=== PATIENT | male | born 1965 | race African-American/Black ===

== ENCOUNTER 2022-12-20 05:15 | Emergency (ER) | payer MEDICAID ==
[~2022-12-20] VITALS: Ht 165.1 cm; Wt 78.0 kg
[2022-12-20 05:18] VITALS: O2SAT 100
[2022-12-20 06:39] LABS: BASOPHILS % 0.4 % (0.0-2.0); EOSINOPHILS % 1.4 % (0.0-5.0); HEMATOCRIT. 37.8 % (42.0-52.0); HEMOGLOBIN. 12.2 g/dL (14.0-18.0); MEAN CORPUSCULAR HEMOGLOBIN 27.8 pg (28.0-32.0); MEAN CORPUSCULAR HGB CONC 32.3 g/dL (31.0-37.0); MEAN CORPUSCULAR VOLUME 86.2 fL (80.0-94.0); MEAN PLATELET VOLUME 7.9 fl (7.4-10.4); MONOCYTES % 10.1 % (2.0-8.0); NEUTROPHILS % 56.1 % (40.0-76.0); PLATELET 368 x1000/uL (130-400); RED BLOOD CELL COUNT 4.38 mill/uL (4.7-6.1); RED CELL DISTRIBUTION WIDTH 16.9 % (11.6-14.6)
[2022-12-20 06:49] LABS: CHLORIDE 105 mEq/L (98-107); INDEX HEMOLYSI 1 (1-3); INDEX ICTERIC 1 (1-4); INDEX LIPEMIC 1 (1-3); SODIUM 137 mEq/L (136-145)
[2022-12-20 06:59] LABS: ALANINE AMINOTRANSFERASE 56 IU/L (13-61); ASPARTATE AMINOTRANSFERASE 39 IU/L (15-37); BILIRUBIN TOTAL 0.2 mg/dL (0.1-1.0); CALCIUM 8.3 mg/dL (8.5-10.1); CARBON DIOXIDE 27 mEq/L (21-32); CREATININE 0.8 mg/dL (0.6-1.3); GLUCOSE 92 mg/dL (70-105); NT PRO B-TYPE NATRIURETIC PEP 425 pg/mL (5-125); PROTEIN TOTAL 7.3 g/dL (6.0-8.3); TROPONIN I HIGH SENSITIVITY 14 ng/L (<78); UREA NITROGEN BLOOD 18 mg/dL (7-21)
[2022-12-20 09:14] VITALS: BP 135/92; PULSE 87; RESP 19; TEMP 98.5
== END 2022-12-20 09:19 | disposition left against medical advice (07) ==
LOC: ER 05:15 → CANBEDREQ 12-21 00:33
DX: R07.89 Other chest pain (principal); I10 Essential (primary) hypertension
CPT/HCPCS: 80053; 83880; 85025; 84484; 36415; 71045; 93005; 99285; Z7610

== ENCOUNTER 2025-02-10 07:47 | Inpatient (IN) | payer MEDICAID ==
[~2025-02-10] VITALS: Ht 170.2 cm; Wt 73.6 kg
[~2025-02-10 07:47] MED LIST: ALBU18HF2 IH; CARV12.545 MT; CARV6.2548 MT; FAMO40TA7 MT; FURO-152 MT; LOSA50TA41 MT; SENN-362 MT
[2025-02-10 07:49] VITALS: O2SAT 99
[2025-02-10 09:12] LABS: BASOPHILS % 0.4 % (0.0-2.0); EOSINOPHILS % 2.0 % (0.0-5.0); HEMATOCRIT. 34.5 % (42.0-52.0); HEMOGLOBIN. 11.0 g/dL (14.0-18.0); LYMPHOCYTES % 20.0 % (20.0-50.0); MEAN PLATELET VOLUME 8.3 fl (7.4-10.4); MONOCYTES % 5.9 % (2.0-8.0); NEUTROPHILS % 71.7 % (40.0-76.0); PLATELET 226 x1000/uL (130-400); RED BLOOD CELL COUNT 4.07 mill/uL (4.7-6.1); RED CELL DISTRIBUTION WIDTH 17.2 % (11.6-14.6)
[2025-02-10 09:24] LABS: CREATININE 0.8 mg/dL (0.6-1.3)
[2025-02-10 09:25] LABS: UREA NITROGEN BLOOD 13 mg/dL (9-23)
[2025-02-10 09:27] LABS: TROPONIN I HIGH SENSITIVITY 14 ng/L (3.0-53)
[2025-02-10] MEDS: HYDRALAZINE 20MG/ML VIAL IV ONE (10:31)
[2025-02-10] MEDS ORDERED: IPRATROPIUM/ALBUTEROL 0.5-3(2.5)MG/3ML NEB HHN PRN (11:45)
[2025-02-10] MEDS ORDERED: ACETAMINOPHEN 325MG TABLET PO PRN ×2 (11:45)
[2025-02-10] MEDS ORDERED: ZOLPIDEM TARTRATE 5MG TABLET PO PRN (11:45)
[2025-02-10] MEDS ORDERED: GUAIFENESIN 200MG/10ML SUGAR FREE UDC PO PRN (11:45)
[2025-02-10] MEDS: FUROSEMIDE 40MG/4ML VIAL IVP SCH (11:45)
[2025-02-10] MEDS ORDERED: DIPHENHYDRAMINE 50MG/ML VIAL IV PRN (11:45)
[2025-02-10] MEDS ORDERED: CLONIDINE 0.1MG TABLET PO PRN (11:45)
[2025-02-10] MEDS ORDERED: MAGNESIUM/ALUMINUM HYDROXIDE/SIMETHICONE 30ML UDC PO PRN (11:45)
[2025-02-10] MEDS ORDERED: ONDANSETRON HCL 4MG/2ML INJ IV PRN (11:45)
[2025-02-10] MEDS: ENOXAPARIN 40MG/0.4ML SYR SUBCUT SCH (12:00)
[2025-02-10] MEDS: SODIUM CHLORIDE 0.9% 3ML FLUSH IVF SCH (14:31)
[2025-02-10 18:00] VITALS: BP 151/96; PULSE 18; PULSE 94; RESP 18; TEMP 36.4; TEMP 36.4736; O2SAT 98
[2025-02-10 20:00] VITALS: BP 144/89; PULSE 78; RESP 18; TEMP 36.3; O2SAT 99
[2025-02-10] MEDS: FAMOTIDINE 20MG TABLET PO SCH (21:44)
[2025-02-10] MEDS: CARVEDILOL 6.25 MG TABLET PO SCH (21:44)
[2025-02-11] VITALS: BP 142/90; PULSE 88; RESP 18; TEMP 36.4; O2SAT 98
[2025-02-11 04:00] VITALS: BP 137/91; PULSE 87; RESP 18; TEMP 36.4; O2SAT 99
[2025-02-11 08:00] VITALS: BP 114/79; PULSE 88; RESP 18; TEMP 36.4; O2SAT 95
[2025-02-11 12:00] VITALS: BP 113/79; PULSE 83; RESP 18; TEMP 36.4; O2SAT 98
[2025-02-11 16:00] VITALS: BP 116/85; PULSE 86; RESP 20; TEMP 36.4; O2SAT 98
[2025-02-11 16:08] LABS: *AMPHETAMINES SCREEN URINE NEGATIVE (NEGATIVE); *BENZODIAZEPINES SCREEN URINE NEGATIVE (NEGATIVE)
[2025-02-11 16:09] LABS: *BARBITURATES SCREEN URINE NEGATIVE (NEGATIVE); *COCAINE SCREEN URINE NEGATIVE (NEGATIVE); CANNABINOID URINE SCREEN NEGATIVE (NEGATIVE); ECSTASY MDMA SCREEN URINE NEGATIVE (NEGATIVE); METHADONE URINE SCREEN NEGATIVE (NEGATIVE); OPIATES URINE SCREEN NEGATIVE (NEGATIVE); PHENCYCLIDINE URINE SCREEN NEGATIVE (NEGATIVE)
[2025-02-11 20:00] VITALS: BP 123/90; PULSE 85; RESP 18; TEMP 36.5; O2SAT 98
[2025-02-12] VITALS: BP 125/89; PULSE 83; RESP 18; TEMP 36.9; O2SAT 96
[2025-02-12 04:00] VITALS: BP 126/86; PULSE 82; RESP 20; TEMP 36.8; O2SAT 97
[2025-02-12 08:00] VITALS: BP 115/73; PULSE 81; RESP 18; O2SAT 100
[2025-02-12 11:27] LABS: CREATININE 0.9 mg/dL (0.6-1.3); UREA NITROGEN BLOOD 16 mg/dL (9-23)
[2025-02-12 11:29] LABS: PHOSPHORUS 3.7 mg/dL (2.5-4.9)
[2025-02-12 12:00] VITALS: BP 110/72; PULSE 75; RESP 18; O2SAT 100
[2025-02-12 16:00] VITALS: BP 113/81; PULSE 86; RESP 18; TEMP 36.4; O2SAT 100
[2025-02-12 16:39] VITALS: BP 113/81; PULSE 86; RESP 18; TEMP 97.5
== END 2025-02-12 17:09 | disposition home or self-care (01) | DRG 194 ==
LOC: ER 07:52 → 6WST 09:49 → EDBEDREQ 09:55 → ENRESERV 11:13
PROVIDERS: ADMIT Internal Medicine; ATTEND Internal Medicine
DX: I11.0 Hypertensive heart disease with heart failure (principal); D64.9 Anemia, unspecified; I50.23 Acute on chronic systolic (congestive) heart failure; I48.91 Unspecified atrial fibrillation; J44.9 Chronic obstructive pulmonary disease, unspecified; Z91.148 Patient's other noncompliance with medication regimen for other reason; Z88.2 Allergy status to sulfonamides
CPT/HCPCS: 36415; 71045; 80048; 80305; 83735; 83880; 84100; 84484; 85025; 93005; 99285; J0360; J1650; J1938